=== PATIENT | male | born 1955 | race Caucasian/White ===

== ENCOUNTER → 2021-10-14 07:53 | Outpatient (CLI) | payer MEDICARE, OTHER, SELFPAY ==
[2021-10-14 08:31] LABS: Hematocrit 44.7 % (41-53); Hemoglobin 15.2 g/dL (13.5-17.5); Mean Corpuscular Hemoglobin 30.3 PG (26-34); Mean Corpuscular Volume 88.9 fL (80-100); Platelet Count 250 X10^3/uL (150-400); Red Blood Cell Count 5.03 X10^6/uL (4.5-5.9); Red Cell Distribution Width 13.2 % (11.6-14.8); White Blood Cell Count 4.5 X10^3/uL (4.5-11.0)
[2021-10-14 09:06] LABS: Alanine Aminotransferase 27 IU/L (<50); Albumin 4.2 g/dL (3.5-5.0); Albumin Globulin Ratio 1.4 (1.0-2.8); Alkaline Phosphatase 59 U/L (38-126); Aspartate Aminotransferase 27 IU/L (17-59); BUN Creatinine Ratio 23.3 (6-22); Bilirubin Total 0.6 mg/dL (0.2-1.3); Blood Urea Nitrogen 24 mg/dL (9-20); Calcium 9.4 mg/dL (8.4-10.2); Carbon Dioxide 25 mmol/L (22-32); Chloride 105 mmol/L (98-107); Cholesterol 206 mg/dL (140-199); Estimated Glomerular Filt Rate > 60 mL/min (>60); Globulin 2.9 g/dL (1.7-4.1); Glucose 105 mg/dL (80-110); HDL Cholesterol 47 mg/dL (40-60); HEMOLYSIS < 15 (0-50); LDL Cholesterol Calculated 146 mg/dL (<100); Potassium 4.6 mmol/L (3.4-5.1); Sodium 139 mmol/L (137-145); Total Protein 7.1 g/dL (6.3-8.2); Triglycerides 67 mg/dL (35-150)
[2021-10-14 09:34] LABS: Prostate Specific Antigen 0.766 ng/mL (0.10-4.00)
== END ==
PROVIDERS: PCP Internal Medicine; Referring Provider Internal Medicine; Visit Provider Internal Medicine
DX: E78.2 Mixed hyperlipidemia (principal); N40.1 Benign prostatic hyperplasia with lower urinary tract symptoms; N13.8 Other obstructive and reflux uropathy
CPT/HCPCS: 36415; 80053; 80061; 84153; 84443; 85027

== ENCOUNTER → 2022-04-10 15:43 | Outpatient (CLI) | payer MEDICARE, OTHER, SELFPAY ==
--- NOTE | 2022-04-10 15:45 | DI.CT.S_ITS ---
PROCEDURE: CT SINUS SCREEN WO CON INDICATIONS: recurrent sinusitis TECHNIQUE: Noncontrast 3.0 mm axial images acquired from the frontal sinuses to the mid-sella, with coronal and sagittal reformats. For radiation dose reduction, the following was used: automated exposure control, adjustment of mA and/or kV according to patient size. COMPARISON: None. FINDINGS: Image quality: Excellent. Maxillary Sinuses: Prominent left maxillary sinus disease is seen. Moderate right-sided maxillary sinus disease is seen. The left maxillary sinus demonstrates remodeling with small size. The medial wall of the left maxillary sinus is not well seen. The medial wall of the right maxillary sinus is demineralized. Ethmoid Air Cells: No bony remodeling or destruction. Mild mucosal thickening is seen within the ethmoid air cells. Sphenoid Sinuses: No bony remodeling or destruction. Sinuses are clear. Frontal Sinuses: No bony remodeling or destruction. Mild mucosal thickening is seen within the inferior medial right frontal sinus Ostiomeatal Complexes: Ostiomeatal complexes are patent. No Macy cells. Miscellaneous: Visualized intra-orbital contents are normal. No shannon bullosa or paradoxical turbinate curvature. There is mild to moderate leftward nasal septal deviation. IMPRESSION: Paranasal sinus disease is seen, which is worst involving the left maxillary sinus. The remodeling change of the maxillary sinuses is consistent with chronic sinus disease. [id number] leftward nasal septal deviation noted. Dictated by: Nino Cifuentes M.D. on 04/10/2022 at 16:40 Approved by: Nino Cifuentes M.D. on 04/10/2022 at 16:42
== END ==
PROVIDERS: PCP Internal Medicine; Referring Provider Internal Medicine; Visit Provider Internal Medicine
DX: J32.8 Other chronic sinusitis (principal); J34.2 Deviated nasal septum
CPT/HCPCS: 70486

== ENCOUNTER → 2022-07-20 09:55 | Outpatient (CLI) | payer MEDICARE, OTHER, SELFPAY ==
--- NOTE | 2022-07-20 | DI.CT.S_ITS ---
PROCEDURE: CT SINUS SCREEN WO CON INDICATIONS: Chronic pansinusitis/Headache TECHNIQUE: Noncontrast 3.0 mm axial images acquired from the frontal sinuses to the mid-sella, with coronal and sagittal reformats. For radiation dose reduction, the following was used: automated exposure control, adjustment of mA and/or kV according to patient size. COMPARISON: [facility], CT, CT SINUS SCREEN WO CON, 04/10/2022, 15:53. FINDINGS: Image quality: Excellent. Maxillary Sinuses: No bony remodeling or destruction. Moderate right and severe left maxillary sinus mucosal thickening. Status post presumed resection of the medial wall of the left maxillary sinus. Ethmoid Air Cells: No bony remodeling or destruction. Mild right and moderate left ethmoid sinus mucosal disease. Sphenoid Sinuses: No bony remodeling or destruction. Sinuses are clear. Frontal Sinuses: No bony remodeling or destruction. Sinuses are clear. Ostiomeatal Complexes: Ostiomeatal complexes are opacified bilaterally. No Macy cells. Miscellaneous: Visualized intra-orbital contents are normal. No shannon bullosa or paradoxical turbinate curvature. Mild leftward nasal septal deviation. IMPRESSION: 1. No significant change in sinus disease associated with ostiomeatal unit opacification bilaterally. 2. Leftward nasal septal deviation. 3. Presumed left-sided maxillary sinus surgery. Dictated by: Kenzie Mccullough M.D. on 07/20/2022 at 13:36 Approved by: Kenzie Mccullough M.D. on 07/20/2022 at 13:39
== END ==
PROVIDERS: PCP Internal Medicine; Referring Provider Physician Assistant; Visit Provider Physician Assistant
DX: J32.4 Chronic pansinusitis (principal); J34.2 Deviated nasal septum; R51.9 Headache, unspecified
CPT/HCPCS: 70486

== ENCOUNTER → 2022-07-27 08:18 | Outpatient (CLI) | payer MEDICARE, OTHER, SELFPAY ==
--- NOTE | 2022-07-27 08:20 | DI.US.S_ITS ---
PROCEDURE: US ABDOMEN LIMITED INDICATIONS: HERNIA TECHNIQUE: Real-time focused scanning was performed of the abdomen, with image documentation. COMPARISON: None. FINDINGS: There is a bowel and fat containing right inguinal hernia without evidence for incarceration. No fluid noted in the hernia sac. Size of the hernia defect measures approximately 2.0 cm in diameter. No adenopathy. IMPRESSION: Bowel and fat containing right inguinal hernia without sonographic evidence to suggest incarceration. Dictated by: Dalton Bear M.D. on 07/27/2022 at 11:23 Approved by: Dalton Bear M.D. on 07/27/2022 at 11:25
== END ==
PROVIDERS: PCP Internal Medicine; Referring Provider Internal Medicine; Visit Provider Internal Medicine
DX: K40.90 Unilateral inguinal hernia, without obstruction or gangrene, not specified as recurrent (principal)
CPT/HCPCS: 76705

== ENCOUNTER 2022-07-31 14:02 | Day surgery (SDC) | payer MEDICARE, OTHER, SELFPAY ==
[2022-07-30 11:55] VITALS: BMI 26.6
[2022-07-31] VITALS (8 sets, daily range): BP systolic 128–137; BP diastolic 70–84; PULSE 59–73; RESP 12–19; TEMP 36.5; O2SAT 95–99; BMI 26.6
[2022-07-31] MEDS: LACTATED RINGERS 1,000 ML 100 ML IV ×2 (14:22→16:39)
--- NOTE | 2022-07-31 15:29 | PM.PREOP ---
Pre-operative Note Interval Note History & Physical reviewed/Exam performed by Physician: Yes Changes to H&P: No
--- NOTE | 2022-07-31 15:38 | SUR.OPER ---
Supine on padded OR bed, head on pillow, arms padded and tucked at sides, legs uncrossed, safety belt at thigh, tape over blanket over lower legs .
[2022-07-31] MEDS: CLINDAMYCIN 900 MG/50 ML PIGGYBACK 50 MG IV (15:40)
[2022-07-31] MEDS: BUPIVACAINE 0.25% (PF) VIAL 30 ML INJ (16:01)
--- NOTE | 2022-07-31 16:54 | PM.OP.1 ---
Operative Date/Time/Diagnoses Date of procedure: 07/31/22 Time of procedure: 16:54 Pre-op diagnosis: Right inguinal hernia Post-op diagnosis: same Procedure & Clinicians Procedure: Laparoscopic transabdominal preperitoneal repair right inguinal hernia Same procedure as scheduled: Yes Indications: symptomatic reducible right inguinal Surgeon: Abisai Lindsey Anesthesia Type: General Operative Notes Findings: Appendix is within an indirect right inguinal Specimen(s): none sent Estimated Blood Loss (mL): 10 Procedure in detail: The patient was brought to the operating room and placed supine on the table. Bilateral sequential compression devices were applied. General anesthesia was induced and they were intubated with an endotracheal tube. A turner cath was placed in sterile fashion. They received 900g clindaymycin prior to skin incision. They were prepped and draped in sterile fashion. A time out was performed to ensure the correct patient, procedure and necessary equipment within the operating room. The skin was infiltrated with 0.25% bupivicaine. A 1 cm supra umbilical midline incision was made. The fascia was sharply incised and the abdomen entered traumatically. A 10mm balloon port was placed and pneumoperitoneum was established at 15mm Hg. Inspection of the abdomen demonstrated no evidence of injury upon entry. Two 5 mm ports were then placed under direct visualization in the right and left lower quadrant lateral to the rectus muscle. A right inguinal hernia was identified. The appendix was within it. Appendix was reduced it was normal in its appearance. The peritoneum 4 cm superior to the deep inguinal ring between the medial umbilical ligament and the anterior superior iliac spine was incised. The medial preperitoneal dissection was carried out into the space of Retzius bluntly, the bladder was swept inferiorly, the pubis and Alexis's ligament were identified. Next attention was turned towards the lateral aspect of the peritoneal flap. The preperitoneal fat with the testicular vessels was carefully dissected off the inferior peritoneal flap. The cord was carefully inspected there was a cord lipoma which was skeltonized off the cord preserving the testicular vessels and the vas deferns. There was no direct hernia defect. A large Bard 3D Max mesh was then placed into the abdomen and positioned such that the myopectineal orifice was completely covered with good overlap on all sides. The peritoneal flap was then repositioned back to its original position and a running V lock suture was used to close the peritoneum such that no bowel could herniate into the preperitoneal space. The area was examined for hemostasis. The 5mm trocars were removed under direct visualization and pneumoperitoneum was deflated through the umbilical trocar, The fascia at the umbilicus was closed with 0-Vicryl in figure of 8 fashion, skin closed with 4-0 Monocyl followed by Dermabond. The sponge and instrument count at the end of the case was correct. Both testicles were entirely within the scrotum at the end of the case. The patient emerged from anesthsia was extubated and transferred to recovery in stable condition. Complications: none Post-operative Condition: stable Disposition: same day surgery
[2022-07-31] MEDS: OXYCODONE/ACETAMINOPHEN 5/325 TABLET 1 TAB PO (17:13)
--- NOTE | 2022-07-31 17:53 | SUR.PHASEII ---
DC instructions gone over with and patient. pain tolerable, ready to go home for dinner. taken to car in .
== END 2022-07-31 17:54 | disposition home or self-care (01) ==
PROVIDERS: PCP Internal Medicine; Referring Provider Surgery; Visit Provider Surgery
PROC: 0YQ54ZZ Repair Right Inguinal Region, Percutaneous Endoscopic Approach (ICD-10-PCS; CPT 49650; principal; 2022-07-31 15:30)
DX: K40.90 Unilateral inguinal hernia, without obstruction or gangrene, not specified as recurrent (principal); D17.6 Benign lipomatous neoplasm of spermatic cord
CPT/HCPCS: 49650; J1100; J1885; J2250; J2405; J2704; J3010

== ENCOUNTER → 2022-10-14 10:54 | Outpatient (CLI) | payer MEDICARE, OTHER, SELFPAY ==
[2022-10-14 13:35] LABS: Alanine Aminotransferase 32 IU/L (<50); Albumin 4.5 g/dL (3.5-5.0); Albumin Globulin Ratio 1.6 (1.0-2.8); Alkaline Phosphatase 62 U/L (38-126); Aspartate Aminotransferase 33 IU/L (17-59); BUN Creatinine Ratio 24.7 (6-22); Bilirubin Total 0.8 mg/dL (0.2-1.3); Blood Urea Nitrogen 23 mg/dL (9-20); Calcium 9.6 mg/dL (8.4-10.2); Carbon Dioxide 27 mmol/L (22-32); Chloride 103 mmol/L (98-107); Cholesterol 228 mg/dL (140-199); Estimated Glomerular Filt Rate > 60 mL/min (>60); Globulin 2.8 g/dL (1.7-4.1); Glucose 88 mg/dL (80-110); HDL Cholesterol 52 mg/dL (40-60); HEMOLYSIS < 15 (0-50); LDL Cholesterol Calculated 157 mg/dL (<100); Potassium 4.7 mmol/L (3.4-5.1); Sodium 139 mmol/L (137-145); Total Protein 7.3 g/dL (6.3-8.2); Triglycerides 93 mg/dL (35-150)
[2022-10-14 14:09] LABS: Prostate Specific Antigen 0.971 ng/mL (0.10-4.00)
== END ==
PROVIDERS: PCP Internal Medicine; Referring Provider Internal Medicine; Visit Provider Internal Medicine
DX: E78.2 Mixed hyperlipidemia (principal); N40.1 Benign prostatic hyperplasia with lower urinary tract symptoms; N13.8 Other obstructive and reflux uropathy
CPT/HCPCS: 36415; 80053; 80061; 84153

== ENCOUNTER → 2023-10-20 10:45 | Outpatient (CLI) | payer MEDICARE, OTHER, SELFPAY ==
[2023-10-20 11:50] LABS: Add Manual Diff / Slide Review NO; Basophils Absolute Auto 0 /uL (0-100); Basophils Percent Auto 0.7 % (0-2); Eosinophils Absolute Auto 300 /uL (0-450); Eosinophils Percent Auto 5.2 % (2-4); Hematocrit 46.4 % (41-53); Hemoglobin 15.9 g/dL (13.5-17.5); Lymphocytes Absolute Auto 1200 /uL (1100-4500); Lymphocytes Percent Auto 20.3 % (25-40); Mean Corpuscular HGB Conc 34.1 % (30-36); Mean Corpuscular Hemoglobin 30.6 PG (26-34); Mean Corpuscular Volume 89.7 fL (80-100); Monocytes Absolute Auto 700 /uL (0-900); Monocytes Percent Auto 11.7 % (3-14); Neutrophils Absolute Auto 3600 /uL (1500-7000); Neutrophils Percent Auto 62.1 % (50-75); Platelet Count 240 X10^3/uL (150-400); Red Blood Cell Count 5.18 X10^6/uL (4.5-5.9); Red Cell Distribution Width 13.3 % (11.6-14.8); White Blood Cell Count 5.8 X10^3/uL (4.5-11.0)
[2023-10-20 17:53] LABS: Aspartate Aminotransferase 31 IU/L (17-59); BUN Creatinine Ratio 23.3 (6-22); Blood Urea Nitrogen 24 mg/dL (9-20); Calcium 9.8 mg/dL (8.4-10.2); Carbon Dioxide 25 mmol/L (22-32); Chloride 106 mmol/L (98-107); Cholesterol 231 mg/dL (140-199); Estimated Glomerular Filt Rate > 60 mL/min (>60); Glucose 95 mg/dL (80-110); HDL Cholesterol 50 mg/dL (40-60); HEMOLYSIS < 15 (0-50); LDL Cholesterol Calculated 161 mg/dL (<100); Potassium 4.7 mmol/L (3.4-5.1); Sodium 139 mmol/L (137-145); Triglycerides 101 mg/dL (35-150)
[2023-10-20 18:37] LABS: Prostate Specific Antigen 0.878 ng/mL (0.10-4.00)
== END ==
PROVIDERS: PCP Internal Medicine; Referring Provider Internal Medicine; Visit Provider Internal Medicine
DX: N40.1 Benign prostatic hyperplasia with lower urinary tract symptoms (principal); N13.8 Other obstructive and reflux uropathy; E78.2 Mixed hyperlipidemia; J30.9 Allergic rhinitis, unspecified; J45.20 Mild intermittent asthma, uncomplicated
CPT/HCPCS: 36415; 80048; 80061; 84153; 84450; 85025

== ENCOUNTER → 2023-12-09 14:08 | Outpatient (CLI) | payer MEDICARE, OTHER, SELFPAY ==
[2023-12-09 15:00] LABS: Appearance Urine UA CLEAR; Bilirubin Urine UA NEGATIVE (NEGATIVE); Color Urine UA YELLOW; Glucose Urine UA NEGATIVE (Negative); Ketones Urine UA NEGATIVE (NEGATIVE); Leukocyte Esterase Urine UA NEGATIVE (NEGATIVE); Nitrite Urine UA NEGATIVE (Negative); Occult Blood Urine UA 1+ (Negative); Protein Urine UA NEGATIVE (Negative); Specific Gravity Urine UA >=1.030 (1.000-1.035); Urobilinogen Urine UA 0.2 E.U./dL (0.2); pH Urine UA 5.5 (4.5-8.0)
[2023-12-09 15:15] LABS: Bacteria Urine None Seen; RBC Urine 5-10/HPF (0-5/HPF); Squamous Epithelial Cell Urine None Seen (0-5/HPF); Uric Acid Crystals Urine Moderate; Urine Volume 10mL (spun); WBC Urine None Seen (0-5/HPF)
[2023-12-09 15:16] LABS: Culture Indicated Urine Cult Not Indicated
== END ==
PROVIDERS: PCP Internal Medicine; Visit Provider Physician Assistant
DX: N20.0 Calculus of kidney (principal); R31.9 Hematuria, unspecified
CPT/HCPCS: 81001

== ENCOUNTER → 2023-12-09 15:39 | Outpatient (CLI) | payer MEDICARE, OTHER, SELFPAY ==
[2023-12-09 16:31] LABS: Uric Acid 6.8 mg/dL (3.5-8.5)
== END ==
PROVIDERS: PCP Internal Medicine; Referring Provider Physician Assistant; Visit Provider Physician Assistant
DX: N20.0 Calculus of kidney (principal); R31.9 Hematuria, unspecified; R82.998 Other abnormal findings in urine
CPT/HCPCS: 36415; 81001; 82365; 84550

== ENCOUNTER → 2023-12-29 09:39 | Outpatient (CLI) | payer MEDICARE, OTHER, SELFPAY ==
[2023-12-29 10:30] LABS: Estimated Glomerular Filt Rate > 60 mL/min (>60)
== END ==
PROVIDERS: PCP Internal Medicine; Referring Provider Urology; Visit Provider Urology
DX: R31.0 Gross hematuria (principal); Z87.442 Personal history of urinary calculi; N40.1 Benign prostatic hyperplasia with lower urinary tract symptoms
CPT/HCPCS: 36415; 82565

== ENCOUNTER → 2024-01-06 12:36 | Outpatient (CLI) | payer MEDICARE, OTHER, SELFPAY ==
--- NOTE | 2024-01-06 12:38 | DI.CT.S_ITS ---
PROCEDURE: CT IVP A/P W/WO INDICATIONS: 68 y/o M w/ gross hematuria, please eval upper urinary tract TECHNIQUE: Optional 5 mm thick noncontrast images acquired from the diaphragm to the symphysis pubis. After the administration of intravenous contrast, 5 mm thick images acquired from the diaphragm to the symphysis pubis after a 10-minute delay. 2 mm thick coronal and sagittal reformats were then performed of the kidneys and ureters. For radiation dose reduction, the following was used: automated exposure control, adjustment of mA and/or kV according to patient size. COMPARISON: None. FINDINGS: Image quality: Diagnostic Lower chest: Basal atelectasis. Normal heart size. Liver: Unremarkable Gallbladder and biliary system: Unremarkable, nondilated Pancreas: No ductal dilation Spleen: Nonenlarged Adrenals: No discrete nodule Kidneys: Multiple renal cysts. Subcentimeter lesions are too small to characterize, usually also cysts. No definite complicated lesion or solid lesion identified. 8 x 6 x 6 mm left upper pole nonobstructing calculus. Other bilateral small calculi are seen under 5 mm. No obstructing calcified stone or hydronephrosis. No ureter filling defects. Vessels and lymph nodes: No abdominal aortic aneurysm. No pathologic lymph nodes by size criteria. The main portal vein is patent. Bowel and peritoneum: No evidence of small bowel obstruction. No pathologic ascites. No drainable abscess. Colonic diverticulosis. Body wall: Small fat containing inguinal hernias. Small fat containing umbilical hernia. Pelvis: Bladder appears unremarkable. Prostate appears unremarkable. Limited evaluation on CT. Bones: There are degenerative changes, no acute or suspicious osseous findings. IMPRESSION: Bilateral nonobstructing renal calculi, the largest measuring up to 8 mm in the left upper pole. No solid renal mass. The lower tracts could be better evaluated with cystoscopy in the setting of hematuria. Other incidental findings above. Dictated by: Ronak Cano M.D. on 01/06/2024 at 15:00 Approved by: Ronak Cano M.D. on 01/06/2024 at 15:05
== END ==
LOC: CT 12:37
PROVIDERS: PCP Internal Medicine; Referring Provider Urology; Visit Provider Urology
DX: N28.1 Cyst of kidney, acquired (principal); R31.0 Gross hematuria; N20.0 Calculus of kidney; K57.90 Diverticulosis of intestine, part unspecified, without perforation or abscess without bleeding; K40.90 Unilateral inguinal hernia, without obstruction or gangrene, not specified as recurrent; K42.9 Umbilical hernia without obstruction or gangrene
CPT/HCPCS: 74178; Q9967

== ENCOUNTER → 2024-01-19 14:52 | Outpatient (CLI) | payer MEDICARE, OTHER, SELFPAY ==
[2024-01-19 16:04] LABS: Appearance Urine UA CLEAR; Bilirubin Urine UA NEGATIVE (NEGATIVE); Color Urine UA YELLOW; Glucose Urine UA NEGATIVE (Negative); Ketones Urine UA NEGATIVE (NEGATIVE); Leukocyte Esterase Urine UA NEGATIVE (NEGATIVE); Nitrite Urine UA NEGATIVE (Negative); Occult Blood Urine UA 2+ (Negative); Protein Urine UA NEGATIVE (Negative); Specific Gravity Urine UA <=1.005 (1.000-1.035); Urobilinogen Urine UA 0.2 E.U./dL (0.2)
[2024-01-19 16:16] LABS: Amorphous Sediment Urine 1+; Bacteria Urine None Seen; Culture Indicated Urine Cult Not Indicated; RBC Urine 1-5/HPF (0-5/HPF); Squamous Epithelial Cell Urine None Seen (0-5/HPF); Urine Volume 10mL (spun); WBC Urine None Seen (0-5/HPF)
== END ==
PROVIDERS: PCP Internal Medicine; Referring Provider Urology; Visit Provider Urology
DX: N40.1 Benign prostatic hyperplasia with lower urinary tract symptoms (principal); R31.0 Gross hematuria; Z87.442 Personal history of urinary calculi; E79.0 Hyperuricemia without signs of inflammatory arthritis and tophaceous disease; N13.8 Other obstructive and reflux uropathy; N20.0 Calculus of kidney
CPT/HCPCS: 81001

== ENCOUNTER → 2024-02-03 10:34 | Outpatient (CLI) | payer MEDICARE, OTHER, SELFPAY | PROVIDERS: PCP Internal Medicine; Visit Provider Urology | DX: N40.1 Benign prostatic hyperplasia with lower urinary tract symptoms (principal) | CPT/HCPCS: 87086 ==

== ENCOUNTER 2024-02-18 06:25 | Day surgery (SDC) | payer MEDICARE, OTHER, SELFPAY ==
[2024-02-11 13:40] VITALS: BMI 26.6
[2024-02-18] VITALS (9 sets, daily range): BP systolic 82–129; BP diastolic 56–79; PULSE 75–96; RESP 10–20; TEMP 36.2–36.7; O2SAT 92–99; BMI 26.6
--- NOTE | 2024-02-18 | PATH_ITS ---
[facility] Accession Number: [id number] No. of containers..01 Tissue . 01 Material submitted: . prostate - PROSTATE CHIPS . 01 Diagnosis: PROSTATE CHIPS (WEIGHT LESS THAN 1 GRAM): Portions of benign fibroepithelial / fibromuscular tissue; negative for significant atypia. The specimen consists predominantly of stromal fragments, and could be consistent with stromal / fibromuscular hyperplasia, in the appropriate clinical setting. Scant / limited glandular elements present for evaluation. Negative for malignancy. GRAHAM 02/22/2024 1351 Local . 01 Electronically signed: . Shae Cruz MD, Pathologist NPI- [id number] . 01 Gross description: . Received in formalin with two identifiers and prostate chips, are multiple thomas soft tissue fragments weighing less than 1 gram and aggregating to 2.6 x 1.5 x 0.2 cm. Filtered and submitted entirely in cassette A1. ([id number]) /GRAHAM 02/19/2024 2118 Local . 01 Pathologist provided ICD-10: N32.0, R31.0 . 01 CPT . 990044 Performed at: [address] [facility] [address], [place], [place] [id number] MD Bryan Timmons MD Phone: [phone]
[2024-02-18] MEDS: LACTATED RINGERS 1,000 ML 42 ML IV (07:04)
[2024-02-18] MEDS: ACETAMINOPHEN 325 MG TABLET 975 MG PO (07:08)
--- NOTE | 2024-02-18 07:39 | PM.PREOP ---
Pre-operative Note COVID-19 COVID-19 status: Not tested Interval Note History & Physical reviewed/Exam performed by Physician: Yes Changes to H&P: No
--- NOTE | 2024-02-18 08:08 | SUR.OPER ---
Lithotomy on padded OR bed, head on pillow, arms secured on padded arm boards at <90 degrees abduction. Legs secured in padded yellow fins stirrups.
--- NOTE | 2024-02-18 08:39 | P.OP_ITS ---
Procedure & Clinicians Procedure: Cystoscopy Resection of bladder neck contracture Same procedure as scheduled: Yes Indications: 68 y/o M noted to have gross hematuria w/ intermittent passage of red cystals and small stones for years. Discussed that his CT IVP was notable for non- obstructive left nephrolithiasis, otherwise unremarkable. His cystoscopy was notable for a 12Fr bladder neck contracture and regrowth of his prostatic tissue laterally following a TURP. He ultimately opted for management via a cystoscopy, resection of his bladder neck contracture and a possible TURBT should a concerning bladder mass be identified. Surgeon: Dalton Cooper Click Yes if Unassisted: Yes Anesthesia Type: General Operative Notes Findings: 12Fr bladder neck contracture, 18Fr bulbar urethral stricture, no concerning bladder masses or lesions Closure Type: not applicable Specimen(s): other (prostate chips) Applied: catheter Estimated Blood Loss (mL): 20 Blood products transfused: none Procedure in detail: Patient was identified in the preoperative holding area and consent confirmed. He was then brought to the operating room where general anesthesia was induced. He was then placed in the low lithotomy position. He was then prepped and draped in the usual sterile fashion. A surgical timeout was conducted and all were in agreement. Access to the bladder was obtained via a 21Fr cystoscope. 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 He also was noted to have a 12Fr thick bladder neck contracture and lateral regrowth of prostatic tissue following a TURP. With moderate pressure on the cystoscope, it was advanced into the bladder and through the aforementioned bladder neck contracture. Complete cystoscopy was then performed using a 30 and 70 degree lens. Bilateral ureteral orifice were easily visualized and noted to be orthotopic in nature. He had grade 3 trabeculations throughout his bladder, no concerning masses or lesions were appreciated. The cystoscope was then removed and the 26Fr resectoscope with visual obturator was then advanced through his urethra and into his bladder. The working element with Gyrus loop was then assembled and passed through the resectoscope and into the bladder. The aforementioned bladder neck contracture was then resected to allow his bladder neck to be wide open when viewed from the level of the verumontanum. All prostate specimens were then manually evacuated from the bladder using the resectoscope. Hemostasis was evaluated and noted to be excellent at case end. A 22Fr 3-way hematuria catheter was then inserted into his bladder, 30cc of sterile water was utilized for balloon insufflation. Continuous bladder irrigation was then initiated and it was noted to be clear. Anesthesia was reversed, he was extubated in the OR and transferred to the PACU in stable condition for recovery. Complications: none Post-operative Condition: stable Disposition: PACU Plan for aftercare: Discharge home from PACU with turner catheter in place. Will return to Urology clinic on 22 Feb 2024 to have his catheter removed and for a voiding trial.
[2024-02-18] MEDS: OXYCODONE IR 5 MG TABLET PO ×2 (08:56→09:25)
[2024-02-18] MEDS: PHENAZOPYRIDINE 100 MG TABLET 200 MG PO (09:10)
== END 2024-02-18 10:38 | disposition home or self-care (01) ==
PROVIDERS: PCP Internal Medicine; Referring Provider Urology; Visit Provider Urology
PROC: 0TBB8ZZ Excision of Bladder, Via Natural or Artificial Opening Endoscopic (ICD-10-PCS; CPT 52640; principal; 2024-02-18 07:45)
DX: N32.0 Bladder-neck obstruction (principal); R31.0 Gross hematuria
CPT/HCPCS: 52640; J1100; J2405; J2704; J3010

== ENCOUNTER 2024-02-20 21:33 | Emergency (ER) | payer MEDICARE, OTHER, SELFPAY ==
[2024-02-20 21:53] VITALS: BP 122/80; PULSE 81; RESP 18; TEMP 36.4; O2SAT 96; BMI 25.8
--- NOTE | 2024-02-20 23:27 | ED_ITS ---
HPI - Recheck/Abnormal Lab/Rx General Chief Complaint: Recheck/Abnormal Lab/Rx Stated Complaint: UTi procedure Fri and having pain & blood in urine Time Seen by Provider: 02/20/24 23:27 Source: patient Mode of arrival: Ambulatory Related Data Home Medications Medication Instructions Recorded Confirmed magnesium 250 mg tablet 250 mg PO DAILY 10/13/21 02/18/24 naproxen sodium 220 mg capsule 440 mg PO DAILY PRN pain 10/13/21 02/18/24 (Aleve) omeprazole magnesium 20 mg 20 mg PO DAILY PRN reflux 10/13/21 02/18/24 tablet,delayed release (Prilosec OTC) cetirizine 10 mg tablet (Aller-Vandana) 10 mg PO DAILY rash 06/16/23 02/18/24 Previous Rx's Medication Instructions Recorded acetaminophen 325 mg capsule 650 mg (2 x 325 mg) PO QID PRN 07/31/22 (Tylenol) pain #60 caps albuterol sulfate 90 mcg/actuation 2 puff inhalation Q6H PRN 10/14/22 aerosol inhaler shortness of breath or wheezing #8.5 grams simvastatin 40 mg tablet 40 mg PO BEDTIME #90 tabs 12/13/23 Allergies Allergy/AdvReac Type Severity Reaction Status Date / Time cephalexin Allergy Intermediate Hives, Verified 02/18/24 06:39 itching, lip swelling cat dander Allergy Mild Sneezing Verified 02/18/24 06:39 atorvastatin AdvReac Intermediate abnormal Verified 02/18/24 06:39 liver testing, reflux Patient History Medical History (Updated 02/04/24 @ 11:00 by Dalton Cooper DO) Trigger finger, right ring finger Eczematous dermatitis Plantar fasciitis, left History of COVID-19 (09/2021) Anxiety Neck pain Palpitations Lactose intolerance HLD (hyperlipidemia) Polycythemia Recurrent sinusitis Right inguinal hernia History of colonic polyps Obstructive sleep apnea History of kidney stones BPH w urinary obs/LUTS Asthma, mild intermittent Allergic rhinitis GERD without esophagitis Mixed hyperlipidemia Surgical History (Updated 02/11/24 @ 13:54 by Ayleen Pardo RN) Hx of right inguinal hernia repair (07/31/22) History of back surgery (02/1991) History of transurethral resection of prostate (11/2020) Hx of umbilical hernia repair Social History marital status: details: , 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, 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 household members: spouse lives independently: Yes occupational status: previously employed Smoking Status: Former smoker alcohol intake: current Smoking Status: Former smoker alcohol intake frequency: a few times a month Exam Initial Vital Signs Initial Vital Signs: Vital Signs Temperature 97.6 F 02/20/24 21:53 Pulse Rate 81 02/20/24 21:53 Respiratory Rate 18 02/20/24 21:53 Blood Pressure 122/80 02/20/24 21:53 Pulse Oximetry 96 02/20/24 21:53 Oxygen Delivery Method Room Air 02/20/24 21:53 Course Vital Signs Vital signs: Vital Signs - 8 hr 02/20/24 21:53 Temperature 97.6 F Pulse Rate 81 Respiratory Rate 18 Blood Pressure 122/80 Pulse Oximetry 96 Oxygen Delivery Method Room Air Discharge Plan Departure Prescriptions: No Action simvastatin 40 mg tablet 40 mg PO BEDTIME Qty: 90 3RF magnesium 250 mg tablet 250 mg PO DAILY naproxen sodium [Aleve] 220 mg capsule 440 mg PO DAILY PRN (Reason: pain) omeprazole magnesium [Prilosec OTC] 20 mg tablet,delayed release (DR/EC) 20 mg PO DAILY PRN (Reason: reflux) albuterol sulfate 90 mcg/actuation HFA aerosol inhaler 2 puff inhalation Q6H PRN (Reason: shortness of breath or wheezing) Qty: 8.5 5RF cetirizine [Aller-Vandana] 10 mg tablet 10 mg PO DAILY acetaminophen [Tylenol] 325 mg capsule 650 mg PO QID PRN (Reason: pain) Qty: 60 0RF Referrals: Hola Feliciano MD [Primary Care Provider] -
[2024-02-21 00:06] VITALS: BP 139/79; PULSE 63; RESP 16; O2SAT 96
[2024-02-21 00:18] LABS: Appearance Urine UA CLEAR; Bilirubin Urine UA NEGATIVE (NEGATIVE); Color Urine UA YELLOW; Glucose Urine UA NEGATIVE (Negative); Ketones Urine UA 1+ (NEGATIVE); Leukocyte Esterase Urine UA TRACE (NEGATIVE); Nitrite Urine UA NEGATIVE (Negative); Occult Blood Urine UA 3+ (Negative); Protein Urine UA NEGATIVE (Negative); Specific Gravity Urine UA <=1.005 (1.000-1.035); Urobilinogen Urine UA 0.2 E.U./dL (0.2)
[2024-02-21 00:20] LABS: Bacteria Urine None Seen; Culture Indicated Urine Cult Not Indicated; RBC Urine 1-5/HPF (0-5/HPF); Squamous Epithelial Cell Urine None Seen (0-5/HPF); Transitional Epi Cells Urine 0-1/HPF (0-5/HPF); Urine Volume 10mL (spun); WBC Urine 0-1/HPF (0-5/HPF)
--- NOTE | 2024-02-21 00:45 | ED.RECABL ---
HPI - Recheck/Abnormal Lab/Rx General Chief Complaint: Recheck/Abnormal Lab/Rx Stated Complaint: UTi procedure Wed and having pain & blood in urine Time Seen by Provider: 02/20/24 23:27 Source: patient Mode of arrival: Ambulatory History of Present Illness HPI narrative: 69-year-old male with history of prior TURP 2020 [facility], 2 months ago started having gross hematuria symptoms, had initial attempt at cystoscopy by local urologist Dr. Cooper who was initially unable to introduce the catheter due to urethral stricture, last Wednesday he had a urethroplasty, and completed cystoscopy, patient not sure if there was also biopsy of any bladder, procedures seemed to go well, was discharged with transurethral urinary catheter that is still in place. He had been taking [id number] azo that he stopped yesterday, had not been having any bowel movement since now 3 days ago, took a laxative yesterday, and a course of MiraLax after talking to on-call nursing, still not having any bowel movement today. This evening had intense penile pain, did not believe that he pulled on the catheter, had some bleeding around the catheter at seemed to stop, still having lower abdominal discomfort without recent bowel movement. No fevers or chills. No blood in stool. Related Data Home Medications Medication Instructions Recorded Confirmed magnesium 250 mg tablet 250 mg PO DAILY 10/13/21 02/18/24 naproxen sodium 220 mg capsule 440 mg PO DAILY PRN pain 10/13/21 02/18/24 (Aleve) omeprazole magnesium 20 mg 20 mg PO DAILY PRN reflux 10/13/21 02/18/24 tablet,delayed release (Prilosec OTC) cetirizine 10 mg tablet (Aller-Vandana) 10 mg PO DAILY rash 06/16/23 02/18/24 Previous Rx's Medication Instructions Recorded acetaminophen 325 mg capsule 650 mg (2 x 325 mg) PO QID PRN 07/31/22 (Tylenol) pain #60 caps albuterol sulfate 90 mcg/actuation 2 puff inhalation Q6H PRN 10/14/22 aerosol inhaler shortness of breath or wheezing #8.5 grams simvastatin 40 mg tablet 40 mg PO BEDTIME #90 tabs 12/13/23 ciprofloxacin HCl 500 mg tablet 500 mg PO BID #20 tabs 01/06/25 (Cipro) lactulose 20 gram/30 mL oral 20 g (30 mL) PO BID #600 mL 02/21/24 solution Allergies Allergy/AdvReac Type Severity Reaction Status Date / Time cephalexin Allergy Intermediate Hives, Verified 02/18/24 06:39 itching, lip swelling cat dander Allergy Mild Sneezing Verified 02/18/24 06:39 atorvastatin AdvReac Intermediate abnormal Verified 02/18/24 06:39 liver testing, reflux Patient History Medical History (Updated 02/21/24 @ 01:39 by Chace Stevenson MD) Trigger finger, right ring finger Eczematous dermatitis Plantar fasciitis, left History of COVID-19 (09/2021) Anxiety Neck pain Palpitations Lactose intolerance HLD (hyperlipidemia) Polycythemia Recurrent sinusitis Right inguinal hernia History of colonic polyps Obstructive sleep apnea History of kidney stones BPH w urinary obs/LUTS Asthma, mild intermittent Allergic rhinitis GERD without esophagitis Mixed hyperlipidemia Surgical History (Updated 02/11/24 @ 13:54 by Ayleen Pardo RN) Hx of right inguinal hernia repair (07/31/22) History of back surgery (02/1991) History of transurethral resection of prostate (11/2020) Hx of umbilical hernia repair Social History marital status: details: , 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 HEAD: Atraumatic. Normocephalic. EYES: Pupils equal round and reactive. Extraocular motions intact. No scleral icterus. No injection or drainage. ENT: Nose without bleeding, purulent drainage. Throat without erythema, tonsillar hypertrophy or exudate. Airway patent. NECK: Trachea midline. Non tender CARDIOVASCULAR: Regular rate and rhythm without murmurs, gallops, or rubs. RESPIRATORY: Clear to auscultation. Breath sounds equal bilaterally. No wheezes, rales, or rhonchi. GASTROINTESTINAL: Abdomen soft, non-tender, nondistended. : Circumcised male genitalia, with urinary catheter in place, dried blood around penis, no blood in tubing, slight pink tinge in collection bag noted. EXTREMITIES: No edema or joint tenderness. BACK: Nontender without deformity or crepitance. No flank tenderness. NEURO: AOx3. Motor functions grossly nonfocal SKIN: No rash or erythema of visible areas Initial Vital Signs Initial Vital Signs: Vital Signs Temperature 97.6 F 02/20/24 21:53 Pulse Rate 81 02/20/24 21:53 Respiratory Rate 18 02/20/24 21:53 Blood Pressure 122/80 02/20/24 21:53 Pulse Oximetry 96 02/20/24 21:53 Oxygen Delivery Method Room Air 02/20/24 21:53 Course Orders Ordered: ED Orders 02/20/24 23:53 Urinalysis and Microscopic Stat 02/21/24 00:56 CT abdomen pelvis wo con Stat 02/21/24 01:15 CBC Auto Diff [Complete Blood Count AUTO DIFF] Stat CMP [Comprehensive Metabolic Panel] Stat 02/21/24 01:38 Urine Culture Stat Discontinued Medications Ciprofloxacin (Ciprofloxacin 250 Mg Tablet) 500 mg PO NOW ONE Stop: 02/21/24 01:28 Last Admin: 02/21/24 01:43 Dose: 500 mg Documented By: REYNALDO Vital Signs Vital signs: Vital Signs - 8 hr 02/20/24 21:53 02/21/24 00:06 02/21/24 01:14 Temperature 97.6 F Pulse Rate 81 63 68 Respiratory Rate 18 16 18 Blood Pressure 122/80 139/79 Pulse Oximetry 96 96 97 Oxygen Delivery Method Room Air Room Air Room Air 02/21/24 01:14 02/21/24 01:30 02/21/24 01:30 Temperature Pulse Rate 66 Respiratory Rate 16 Blood Pressure 126/81 134/84 Pulse Oximetry 95 Oxygen Delivery Method Room Air MDM - Recheck/Abnormal Lab/Rx Lab Data Attestation: I reviewed the patient's lab results. Lab results narrative: Urinalysis shows some blood, leukocyte esterase trace, no bacteria seen. Does not meet criteria for urine culture 02/21/24 01:15 02/21/24 01:15 Labs: Lab Results 02/20/24 02/21/24 Range/Units 23:53 01:15 WBC 8.8 (4.5-11.0) X10^3/uL RBC 5.37 (4.5-5.9) X10^6/uL Hgb 16.2 (13.5-17.5) g/dL Hct 47.9 (41-53) % MCV 89.1 (80-100) fL MCH 30.1 (26-34) PG MCHC 33.8 (30-36) % RDW 13.1 (11.6-14.8) % Plt Count 251 (150-400) X10^3/uL Neut % (Auto) 63.1 (50-75) % Lymph % (Auto) 21.8 L (25-40) % [place] % (Auto) 10.6 (3-14) % Eos % (Auto) 3.8 (2-4) % Baso % (Auto) 0.7 (0-2) % Neut # (Auto) 5500 (2436-7699) /uL Lymph # (Auto) 1900 (8862-7137) /uL [place] # (Auto) 900 (0-900) /uL Eos # (Auto) 300 (0-450) /uL Baso # (Auto) 100 (0-100) /uL Sodium 136 L (137-145) mmol/L Potassium 3.9 (3.4-5.1) mmol/L Chloride 104 (98-107) mmol/L Carbon Dioxide 24 (22-32) mmol/L BUN 17 (9-20) mg/dL Creatinine 0.96 (0.66-1.25) mg/dL Estimated GFR > 60 (>60) mL/min BUN/Creatinine Ratio 17.7 (6-22) Glucose 95 (80-110) mg/dL Calcium 9.6 (8.4-10.2) mg/dL Total Bilirubin 0.9 (0.2-1.3) mg/dL AST 39 (17-59) IU/L ALT 31 (<50) IU/L Alkaline Phosphatase 65 (38-126) U/L Total Protein 7.8 (6.3-8.2) g/dL Albumin 4.5 (3.5-5.0) g/dL Globulin 3.3 (1.7-4.1) g/dL Albumin/Globulin Ratio 1.4 (1.0-2.8) Urine Color Yellow Urine Appearance Clear Urine pH 7.0 (4.5-8.0) Ur Specific [place] <=1.005 (1.000-1.035) Urine Protein Negative (Negative) Urine Glucose (UA) Negative (Negative) g/dL Urine Ketones 1+ H (NEGATIVE) Urine Occult Blood 3+ H (Negative) Urine Nitrate Negative (Negative) Urine Bilirubin Negative (NEGATIVE) Urine Urobilinogen 0.2 (0.2) E.U./dL Ur Leukocyte Esterase Trace H (NEGATIVE) Urine RBC 1-5/hpf (0-5/HPF) Urine WBC 0-1/hpf (0-5/HPF) Ur Squamous Epith Cells None seen (0-5/HPF) Ur Transition Epith Cell 0-1/hpf (0-5/HPF) Urine Bacteria None seen (None) Ur Culture Indicated? Cult not indicated Vol Urine Centrifuged 10ml (spun) Imaging Data CT scan - abdomen/pelvis: Radiologist's Impression: Close Abdomen/Pelvis CT (Signed) Herb Yusuf - 02/21/24 Launch?[place] [address] CT Scan Report Signed Patient: Brady Sena MR#: [id number] : 1955 Acct:[id number] Age/Sex: 69 / M Date of Service: 02/21/24 Loc: ED Accession Number: [id number] Procedure: CT abdomen pelvis wo con Ordering Provider: Chace Stevenson MD PROCEDURE: CT ABDOMEN PELVIS WO CON INDICATIONS: lower abd pain, recent cystoscopy TECHNIQUE: Axial sections were acquired from the lung bases to the pubic symphysis. Coronal and sagittal reformats were performed. For radiation dose reduction, the following was used: automated exposure control, adjustment of mA and/or kV according to patient size. COMPARISON: None. FINDINGS: Image quality: Diagnostic. Lower Chest: No significant findings. URINARY: Right Kidney: Punctate nonobstructing stones are seen scattered in right renal parenchyma measures 1-2 mm in size. No hydronephrosis. Right Ureter: No hydroureter. Left Kidney: Nonobstructing left renal calculi are seen measures up to 7 mm in size in midpole left kidney. No hydronephrosis. Mild left perinephric fat stranding is seen. Left Ureter: No hydroureter. Bladder: Turner catheter within decompressed urinary bladder lumen. Questionable bladder wall thickening. No calcified bladder stones. ABDOMEN: Liver: No contour-deforming solid mass. Gallbladder: No radiopaque gallstones or wall thickening. Biliary ducts: No biliary dilation. Pancreas: No ductal dilation. Spleen: Size is within normal limits. Adrenal Glands: No adrenal nodules. Stomach and Bowel: There is no bowel obstruction or abnormal bowel wall thickening. Sigmoid diverticulosis without CT evidence of acute diverticulitis. Appendix is not visualized. No focal inflammatory changes are seen in right lower quadrant abdomen. No abscess collection. Peritoneum: No abnormal intraperitoneal fluid. No free air. Ventral Wall: No hernia. Abdominal Nodes: No enlarged retroperitoneal or mesenteric lymph nodes. Vessels: Aorta and inferior vena cava are normal in size. PELVIS: Pelvic Organs: Mildly enlarged prostate gland with mass effect on floor of urinary bladder is seen. Pelvic Nodes: Unremarkable. Miscellaneous: Small bilateral inguinal hernia seen containing only. Bones: No aggressive appearing bony lesions. No acute vertebral body compression fracture or spondylolisthesis. Degenerative disc disease throughout lower thoracic and lumbar spine is seen. IMPRESSION: 1. No obstructing stones or hydronephrosis. Bilateral nonobstructing renal calculi. Mild left perinephric fat stranding, low-grade pyelonephritis cannot be excluded. 2. Turner catheter in decompressed urinary bladder. Questionable bladder wall thickening. No discrete bladder wall mass. No calcified bladder stones. Mildly enlarged prostate gland with mild mass effect on floor of urinary bladder. 3. No bowel obstruction or abnormal bowel wall thickening. No secondary CT signs of acute appendicitis. Sigmoid diverticulosis without CT evidence of acute diverticulitis. No free fluid free air. Dictated by: Herb Yusuf M.D. on 02/21/2024 at 1:13 Approved by: Herb Yusuf M.D. on 02/21/2024 at 1:17 MDM Narrative Medical decision making narrative: 69-year-old male with history of gross hematuria, had recent urethroplasty for stricture, to then complete cystoscopy, still having postoperative turner urinary catheter in place, today had intense penile pain, did not believe the catheter was dislodged, some bleeding around the penis. Also lower abdominal discomfort, no bowel movement for the last 3 days despite use of [id number]-[id number] laxative and course of MiraLax. Afebrile, sirs screen negative. Urinary catheter in place, no active bleeding around the catheter seems intact, no blood within the tubing, scant pink tinge in collection bag noted. Urinalysis not obvious for infection, some blood noted. CBC, CMP pending. CT abdomen and pelvis ordered. CT abdomen and pelvis without contrast. Impressions: ?No obstructing stones or hydronephrosis. Bilateral nonobstructing renal calculi. Mild left perinephric fat stranding, low-grade pyelonephritis can not be excluded. Turner catheter in decompressed urinary bladder. Questionable bladder wall thickening. No discrete bladder wall mass. No calcified bladder stones. Mildly enlarged prostate gland with mild mass effect on floor of the urinary bladder. No bowel obstruction or abnormal bowel thickening. No secondary signs of acute appendicitis. Sigmoid diverticulosis without CT evidence of acute diverticulitis. No free fluid free air.? See radiology report Left pyelonephritis changes on CT imaging noted. Urine had blood but not overly impressive, however urine culture requested from this specimen. History of cephalosporin and cephalexin allergy noted. Oral dose ciprofloxacin given here, prescription for further oral ciprofloxacin course of antibiotics for pyelonephritis sent to his pharmacy. Leave catheter/collection bag intact for now. Regarding his lack of bowel movement for 2 or 3 days, there was no mention of any bowel obstruction, no significant stool burden, however seems to be refractory to course of Colace and also MiraLax. Prescription for lactulose sent also to his pharmacy if desired to induce bowel movement. Declined enema, which does not seem indicated by lack of any fecal stool on CT imaging above. Discharged home with family. Follow up with his urologist Dr. Cooper tomorrow 02/22/2024 as planned. Return precautions discussed. Discharge Plan Departure Patient Disposition: Home Clinical Impression: Gross hematuria, Pyelonephritis of left kidney Activity Restrictions/Additional Instructions: Bleeding around Turner catheter penis today, of unclear cause. History of gross hematuria with previous attempted cystoscopy inhibited by urethral stricture, repeat procedure urologist Dr. Cooper on Wednesday with urethroplasty and successful cystoscopy, no known bladder lesions, Turnre catheter in place, awaiting follow up on Wednesday with Dr. Cooper. No bowel movement since , having tried trjc-jon-ueltbcy laxative, and then MiraLax yesterday per phone call with nursing hotline advice. Tonight with penile shaft pain, and some bleeding around the catheter, without knowledge of any dislodgement or pulling or trauma to the catheter. No active bleeding on examination. No ongoing active bleeding in the catheter tubing seemed obvious. Urinalysis showed some blood but no grossly obvious infection, however urine culture was requested. CT abdomen and pelvis noncontrast imaging done, no perforation of the bladder or complications with the procedure seemed obvious, however there seemed to be some stranding around the left kidney, the radiologist was concerned about possible left kidney infection, no obstructing stone in the left ureter noted. We discussed antibiotics for possible left-sided urine infection, history of cephalosporin antibiotic allergy, 1st dose oral ciprofloxacin given, further course of antibiotics sent to your pharmacy. Leave existing urinary catheter in place for now. Regarding lack of bowel movements, consider another dose of MiraLax. I also did send a prescription for lactulose if he would like to try this, which can induce some loosening of the stools. There was no mention of any significant stool burden or bowel obstruction patterns or acute intestinal problems on the CT scan tonight, we have therefore held off on any enema since there was no mention of any sigmoid or rectal stool ball or fecal impaction. Follow up with your urologist tomorrow Wednesday as scheduled. Return earlier to this/nearest emergency department for any change worsening symptoms or any concerns prior Prescriptions: New ciprofloxacin HCl [Cipro] 500 mg tablet 500 mg PO BID Qty: 20 0RF lactulose 20 gram/30 mL solution 20 g PO BID Qty: 600 0RF No Action simvastatin 40 mg tablet 40 mg PO BEDTIME Qty: 90 3RF magnesium 250 mg tablet 250 mg PO DAILY naproxen sodium [Aleve] 220 mg capsule 440 mg PO DAILY PRN (Reason: pain) omeprazole magnesium [Prilosec OTC] 20 mg tablet,delayed release (DR/EC) 20 mg PO DAILY PRN (Reason: reflux) albuterol sulfate 90 mcg/actuation HFA aerosol inhaler 2 puff inhalation Q6H PRN (Reason: shortness of breath or wheezing) Qty: 8.5 5RF cetirizine [Aller-Vandana] 10 mg tablet 10 mg PO DAILY acetaminophen [Tylenol] 325 mg capsule 650 mg PO QID PRN (Reason: pain) Qty: 60 0RF Referrals: Dalton Cooper DO [Physician] - Hola Feliciano MD [Primary Care Provider] - Stand Alone Forms: Patient Portal/API/Survey
--- NOTE | 2024-02-21 00:56 | DI.CT.S_ITS ---
PROCEDURE: CT ABDOMEN PELVIS WO CON INDICATIONS: lower abd pain, recent cystoscopy TECHNIQUE: Axial sections were acquired from the lung bases to the pubic symphysis. Coronal and sagittal reformats were performed. For radiation dose reduction, the following was used: automated exposure control, adjustment of mA and/or kV according to patient size. COMPARISON: None. FINDINGS: Image quality: Diagnostic. Lower Chest: No significant findings. URINARY: Right Kidney: Punctate nonobstructing stones are seen scattered in right renal parenchyma measures 1-2 mm in size. No hydronephrosis. Right Ureter: No hydroureter. Left Kidney: Nonobstructing left renal calculi are seen measures up to 7 mm in size in midpole left kidney. No hydronephrosis. Mild left perinephric fat stranding is seen. Left Ureter: No hydroureter. Bladder: Nicolas catheter within decompressed urinary bladder lumen. Questionable bladder wall thickening. No calcified bladder stones. ABDOMEN: Liver: No contour-deforming solid mass. Gallbladder: No radiopaque gallstones or wall thickening. Biliary ducts: No biliary dilation. Pancreas: No ductal dilation. Spleen: Size is within normal limits. Adrenal Glands: No adrenal nodules. Stomach and Bowel: There is no bowel obstruction or abnormal bowel wall thickening. Sigmoid diverticulosis without CT evidence of acute diverticulitis. Appendix is not visualized. No focal inflammatory changes are seen in right lower quadrant abdomen. No abscess collection. Peritoneum: No abnormal intraperitoneal fluid. No free air. Ventral Wall: No hernia. Abdominal Nodes: No enlarged retroperitoneal or mesenteric lymph nodes. Vessels: Aorta and inferior vena cava are normal in size. PELVIS: Pelvic Organs: Mildly enlarged prostate gland with mass effect on floor of urinary bladder is seen. Pelvic Nodes: Unremarkable. Miscellaneous: Small bilateral inguinal hernia seen containing only. Bones: No aggressive appearing bony lesions. No acute vertebral body compression fracture or spondylolisthesis. Degenerative disc disease throughout lower thoracic and lumbar spine is seen. IMPRESSION: 1. No obstructing stones or hydronephrosis. Bilateral nonobstructing renal calculi. Mild left perinephric fat stranding, low-grade pyelonephritis cannot be excluded. 2. Nicolas catheter in decompressed urinary bladder. Questionable bladder wall thickening. No discrete bladder wall mass. No calcified bladder stones. Mildly enlarged prostate gland with mild mass effect on floor of urinary bladder. 3. No bowel obstruction or abnormal bowel wall thickening. No secondary CT signs of acute appendicitis. Sigmoid diverticulosis without CT evidence of acute diverticulitis. No free fluid free air. Dictated by: Herb Yusuf M.D. on 02/21/2024 at 1:13 Approved by: Herb Yusuf M.D. on 02/21/2024 at 1:17
--- NOTE | 2024-02-21 01:02 | PC.NURSE ---
Pt ambulatory to imaging with environmental services technician
[2024-02-21 01:14] VITALS: BP 126/81; PULSE 68; RESP 18; O2SAT 97
[2024-02-21 01:25] LABS: Add Manual Diff / Slide Review NO; Basophils Absolute Auto 100 /uL (0-100); Basophils Percent Auto 0.7 % (0-2); Eosinophils Absolute Auto 300 /uL (0-450); Eosinophils Percent Auto 3.8 % (2-4); Hematocrit 47.9 % (41-53); Hemoglobin 16.2 g/dL (13.5-17.5); Lymphocytes Absolute Auto 1900 /uL (1100-4500); Lymphocytes Percent Auto 21.8 % (25-40); Mean Corpuscular HGB Conc 33.8 % (30-36); Mean Corpuscular Hemoglobin 30.1 PG (26-34); Mean Corpuscular Volume 89.1 fL (80-100); Monocytes Absolute Auto 900 /uL (0-900); Monocytes Percent Auto 10.6 % (3-14); Neutrophils Absolute Auto 5500 /uL (1500-7000); Neutrophils Percent Auto 63.1 % (50-75); Platelet Count 251 X10^3/uL (150-400); Red Blood Cell Count 5.37 X10^6/uL (4.5-5.9); Red Cell Distribution Width 13.1 % (11.6-14.8); White Blood Cell Count 8.8 X10^3/uL (4.5-11.0)
[2024-02-21 01:30] VITALS: BP 134/84; PULSE 66; RESP 16; O2SAT 95
[2024-02-21 01:33] LABS: Alanine Aminotransferase 31 IU/L (<50); Albumin 4.5 g/dL (3.5-5.0); Albumin Globulin Ratio 1.4 (1.0-2.8); Alkaline Phosphatase 65 U/L (38-126); Aspartate Aminotransferase 39 IU/L (17-59); BUN Creatinine Ratio 17.7 (6-22); Bilirubin Total 0.9 mg/dL (0.2-1.3); Blood Urea Nitrogen 17 mg/dL (9-20); Calcium 9.6 mg/dL (8.4-10.2); Carbon Dioxide 24 mmol/L (22-32); Chloride 104 mmol/L (98-107); Estimated Glomerular Filt Rate > 60 mL/min (>60); Globulin 3.3 g/dL (1.7-4.1); Glucose 95 mg/dL (80-110); HEMOLYSIS < 15 (0-50); Potassium 3.9 mmol/L (3.4-5.1); Sodium 136 mmol/L (137-145); Total Protein 7.8 g/dL (6.3-8.2)
[2024-02-21] MEDS: CIPROFLOXACIN 250 MG TABLET 500 MG PO (01:43)
== END 2024-02-21 01:49 | disposition home or self-care (01) ==
PROVIDERS: Emergency Provider Emergency Medicine; PCP Internal Medicine
DX: N12 Tubulo-interstitial nephritis, not specified as acute or chronic (principal); R31.0 Gross hematuria; Z98.890 Other specified postprocedural states
CPT/HCPCS: 36415; 74176; 80053; 81001; 85025; 87086; 99283; 99284

== ENCOUNTER → 2024-02-28 13:05 | Outpatient (CLI) | payer MEDICARE, OTHER, SELFPAY ==
[2024-02-28 13:52] LABS: Appearance Urine UA CLEAR; Bilirubin Urine UA NEGATIVE (NEGATIVE); Color Urine UA YELLOW; Glucose Urine UA NEGATIVE (Negative); Ketones Urine UA NEGATIVE (NEGATIVE); Leukocyte Esterase Urine UA TRACE (NEGATIVE); Nitrite Urine UA NEGATIVE (Negative); Occult Blood Urine UA 2+ (Negative); Protein Urine UA NEGATIVE (Negative); Specific Gravity Urine UA 1.025 (1.000-1.035); Urobilinogen Urine UA 0.2 E.U./dL (0.2)
[2024-02-28 13:57] LABS: Urine Volume 10mL (spun)
[2024-02-28 14:00] LABS: Bacteria Urine None Seen; Culture Indicated Urine Specimen Cultured; RBC Urine 1-5/HPF (0-5/HPF); Squamous Epithelial Cell Urine None Seen (0-5/HPF); WBC Urine 1-5/HPF (0-5/HPF)
== END ==
PROVIDERS: PCP Internal Medicine; Referring Provider Urology; Visit Provider Urology
DX: N40.1 Benign prostatic hyperplasia with lower urinary tract symptoms (principal); N13.8 Other obstructive and reflux uropathy; N20.0 Calculus of kidney; N12 Tubulo-interstitial nephritis, not specified as acute or chronic; R31.0 Gross hematuria; N32.0 Bladder-neck obstruction
CPT/HCPCS: 81001; 87086

== ENCOUNTER → 2024-03-09 08:47 | Outpatient (CLI) | payer MEDICARE, OTHER, SELFPAY ==
[2024-03-09 10:00] LABS: Appearance Urine UA CLEAR; Bilirubin Urine UA NEGATIVE (NEGATIVE); Color Urine UA YELLOW; Glucose Urine UA NEGATIVE (Negative); Ketones Urine UA NEGATIVE (NEGATIVE); Leukocyte Esterase Urine UA TRACE (NEGATIVE); Nitrite Urine UA NEGATIVE (Negative); Occult Blood Urine UA 2+ (Negative); Protein Urine UA NEGATIVE (Negative); Urobilinogen Urine UA 0.2 E.U./dL (0.2); pH Urine UA 5.5 (4.5-8.0)
[2024-03-09 10:09] LABS: Bacteria Urine None Seen; Culture Indicated Urine Cult Not Indicated; RBC Urine 1-5/HPF (0-5/HPF); Squamous Epithelial Cell Urine None Seen (0-5/HPF); Urine Volume 10mL (spun); WBC Urine 1-5/HPF (0-5/HPF)
== END ==
PROVIDERS: PCP Internal Medicine; Referring Provider Urology; Visit Provider Urology
DX: N32.0 Bladder-neck obstruction (principal)
CPT/HCPCS: 81001

== ENCOUNTER 2024-05-05 08:10 | Day surgery (SDC) | payer MEDICARE, OTHER, SELFPAY ==
[2024-05-05 08:54] VITALS: BP 135/72; PULSE 69; RESP 16; TEMP 36.1; O2SAT 96
[2024-05-05] MEDS: LACTATED RINGERS 1,000 ML 42 ML IV (09:07)
--- NOTE | 2024-05-05 09:54 | PM.HP.IH.1 ---
History of Present Illness History of Present Illness Date Patient Seen: 05/05/24 Time Patient Seen: 09:54 Chief complaint: Colonoscopy w/poss bx [facility] Medical History Trigger finger, right ring finger Eczematous dermatitis Plantar fasciitis, left History of COVID-19 (09/2021) Anxiety Neck pain Palpitations Lactose intolerance HLD (hyperlipidemia) Polycythemia Recurrent sinusitis Right inguinal hernia History of colonic polyps Obstructive sleep apnea History of kidney stones BPH w urinary obs/LUTS Asthma, mild intermittent Allergic rhinitis GERD without esophagitis Mixed hyperlipidemia Surgical History Hx of right inguinal hernia repair (07/31/22) History of back surgery (02/1991) History of transurethral resection of prostate (11/2020) Hx of umbilical hernia repair Social History marital status: details: , 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, 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 household members: spouse lives independently: Yes occupational status: previously employed Smoking Status: Former smoker alcohol intake: current Meds Home Medications and Allergies Home Medications Medication Instructions Recorded Confirmed Type magnesium 250 mg tablet 250 mg PO DAILY 10/13/21 05/05/24 History naproxen sodium 220 mg capsule 440 mg PO DAILY PRN pain 10/13/21 02/22/24 History (Aleve) omeprazole magnesium 20 mg 20 mg PO DAILY PRN reflux 10/13/21 02/22/24 History tablet,delayed release (Prilosec OTC) acetaminophen 325 mg capsule 650 mg (2 x 325 mg) PO QID PRN 07/31/22 02/22/24 Rx (Tylenol) pain #60 caps cetirizine 10 mg tablet (Aller-Vandana) 10 mg PO DAILY rash 06/16/23 02/22/24 History simvastatin 40 mg tablet 40 mg PO BEDTIME #90 tabs 12/13/23 05/05/24 Rx ciprofloxacin HCl 500 mg tablet 500 mg PO BID #20 tabs 02/21/24 02/22/24 Rx (Cipro) lactulose 20 gram/30 mL oral 20 g (30 mL) PO BID #600 mL 02/21/24 02/22/24 Rx solution phenazopyridine 95 mg tablet (Azo 95 mg PO TID PRN 02/22/24 02/22/24 History Urinary Pain Relief) albuterol sulfate 90 mcg/actuation 2 puff inhalation Q6H PRN 03/27/24 Rx aerosol inhaler shortness of breath or wheezing #8.5 grams Allergies Allergy/AdvReac Type Severity Reaction Status Date / Time cephalexin Allergy Intermediate Hives, Verified 05/05/24 08:53 itching, lip swelling cat dander Allergy Mild Sneezing Verified 05/05/24 08:53 atorvastatin AdvReac Intermediate abnormal Verified 05/05/24 08:53 liver testing, reflux Review of Systems Review of Systems Narrative: History of positive colonoscopy, most recent 3-5 years ago with no polyps. Has no bloody bowel movements, no change in stool color or changing to afford best diet. Does have some bleeding in the bowl this morning after prep. States prepped is good Constitutional Constitutional: Reports as per HPI Exam Vital Signs (past 8 hours): - 05/05/24 08:54 Temperature 97 F L Pulse Rate 69 Respiratory Rate 16 Blood Pressure 135/72 Pulse Oximetry 96 Oxygen Delivery Method Room Air Oxygen Delivery Method Room Air Narrative Exam Narrative: Alert and oriented, no acute distress, abdomen benign Const General: cooperative and healthy appearing [facility] Head: normal to inspection Assessment & Plan Assessment & Plan narrative: History of polyps, due for screening colonoscopy, planning for colonoscopy today. Consent signed patient was given the opportunity ask questions which were answered to his apparent satisfaction Time-Based Coding :: [TOTAL MINUTES] spent with patient and on the chart (including review of chart, obtaining history, exam, reviewing outside data, placing orders, documenting exam and treatment plan, and counseling patient) on [DATE]. PROFEE Water Safety Teacher Document charge(s): Yes
[2024-05-05 10:35] VITALS: BP 87/84; PULSE 64; RESP 14; TEMP 36.6; O2SAT 98
[2024-05-05 10:40] VITALS: BP 119/92; PULSE 66; RESP 13; O2SAT 98
--- NOTE | 2024-05-05 10:42 | PM.OP.COLON ---
Operative Date/Time/Diagnoses Date of procedure: 05/05/24 Time of procedure: 10:42 Pre-op diagnosis: Colon cancer screening Post-op diagnosis: same Procedure & Clinicians Study performed: Colonoscopy Same procedure as scheduled: Yes Indications: History of colon polyps Surgeon: Darian Galvez Procedure Notes SCOAP/Timeout: Performed Procedure in detail: Patient seen in the preop area, H and P updated, positive history of colon polyps Patient reported prep was adequate. ? Patient brought back to procedure room, time-out was performed verifying correct patient procedure.? He was given sedation. ? External rectal exam was performed with no identified fissures, or external hemorrhoids significance.? Some hemorrhoidal skin tags. ? Digital rectal exam performed with no masses or blood. Enlarged prostate, no masses palpated ? Colonoscope placed, colon insufflated, adequacy of prep was adequate but not perfect ?the scope was passed without difficulty to the cecum, verified by identification of the tinea. ? The scope was withdrawn with circumferential view of the colon, areas occluded by bowel prep or cleaned as much as possible.? Small 3 mm sessile polyp was identified at 20 cm from the anal verge, was questionable whether this was polypoid or scalp trauma consideration given to fulguration but no cold biopsy was taken. Photo was taken for the chart The scope was retroflexed in the rectum and no internal hemorrhoids were identified. ?air was withdrawn from the colon, scope was withdrawn, and the patient was brought to the recovery area in stable condition. Scope withdrawal time: 12 min Findings: polyp(s) Specimen(s): none sent Complications: none Impression: Small sessile polyp, given history who recommend follow-up colonoscopy in 3 years Post-procedure Recommendations: Colonoscopy in 3 years Plan for aftercare: PACU Follow up: as needed Disposition: PACU
[2024-05-05 10:45] VITALS: BP 118/60; PULSE 62; RESP 12; O2SAT 98
[2024-05-05 10:50] VITALS: BP 123/69; PULSE 68; RESP 12; TEMP 36.6; O2SAT 96
[2024-05-05 11:00] VITALS: BP 114/67; PULSE 64; RESP 12; O2SAT 96
== END 2024-05-05 11:16 | disposition home or self-care (01) ==
PROVIDERS: PCP Internal Medicine
DX: Z12.11 Encounter for screening for malignant neoplasm of colon (principal); Z86.0100 Personal history of colon polyps, unspecified; K64.4 Residual hemorrhoidal skin tags; N40.0 Benign prostatic hyperplasia without lower urinary tract symptoms
CPT/HCPCS: G0105; J2704

== ENCOUNTER → 2024-11-22 10:45 | Outpatient (CLI) | payer MEDICARE, OTHER, SELFPAY ==
[2024-11-22 11:23] LABS: Hematocrit 47.0 % (41-53); Hemoglobin 15.8 g/dL (13.5-17.5); Mean Corpuscular HGB Conc 33.6 % (30-36); Mean Corpuscular Hemoglobin 30.1 PG (26-34); Mean Corpuscular Volume 89.5 fL (80-100); Platelet Count 234 X10^3/uL (150-400)
[2024-11-22 11:36] LABS: Blood Urea Nitrogen 19 mg/dL (9-20); Calcium 9.8 mg/dL (8.4-10.2); Carbon Dioxide 27 mmol/L (22-32); Chloride 102 mmol/L (98-107); Cholesterol 221 mg/dL (140-199); Estimated Glomerular Filt Rate > 60 mL/min (>60); Glucose 97 mg/dL (70-99); HDL Cholesterol 57 mg/dL (40-60); HEMOLYSIS < 15 (0-50); Potassium 4.8 mmol/L (3.4-5.1); Sodium 138 mmol/L (137-145); Triglycerides 107 mg/dL (35-150)
[2024-11-22 12:03] LABS: Prostate Specific Antigen 1.01 ng/mL (0.10-4.00); TSH w/ Reflex to FT4 2.25 uIU/mL (0.47-4.68)
== END ==
PROVIDERS: PCP Internal Medicine; Referring Provider Internal Medicine; Visit Provider Internal Medicine
DX: N13.8 Other obstructive and reflux uropathy (principal); E78.2 Mixed hyperlipidemia; N40.1 Benign prostatic hyperplasia with lower urinary tract symptoms; M13.80 Other specified arthritis, unspecified site
CPT/HCPCS: 36415; 80048; 80061; 84153; 84443; 84450; 85027; 85651; 86140

== ENCOUNTER → 2024-12-06 09:46 | Outpatient (CLI) | payer MEDICARE, OTHER, SELFPAY ==
--- NOTE | 2024-12-06 09:47 | DI.RAD.S_ITS ---
PROCEDURE: XR SHOULDER RT MIN 2V INDICATIONS: shoulder pain, no trauma TECHNIQUE: Three views of the right shoulder were acquired. COMPARISON: None. FINDINGS: Bones: There are no osseous abnormalities. Acromioclavicular and glenohumeral joints: Mild acromioclavicular and glenohumeral degeneration Soft tissues: No soft tissue swelling, calcification or mass. IMPRESSION: Mild degeneration Dictated by: Christopher Montaño M.D. on 12/07/2024 at 11:38 Approved by: Christopher Montaño M.D. on 12/07/2024 at 11:39
== END ==
PROVIDERS: PCP Internal Medicine; Referring Provider Internal Medicine; Visit Provider Internal Medicine
DX: M19.011 Primary osteoarthritis, right shoulder (principal); M75.81 Other shoulder lesions, right shoulder
CPT/HCPCS: 73030

== ENCOUNTER → 2025-01-09 08:48 | Outpatient (CLI) | payer MEDICARE, OTHER, SELFPAY ==
[2025-01-09 10:27] LABS: Alanine Aminotransferase 26 IU/L (<50); Albumin 4.7 g/dL (3.5-5.0); Albumin Globulin Ratio 1.6 (1.0-2.8); Alkaline Phosphatase 67 U/L (38-126); Blood Urea Nitrogen 20 mg/dL (9-20); Calcium 9.8 mg/dL (8.4-10.2); Carbon Dioxide 28 mmol/L (22-32); Chloride 103 mmol/L (98-107); Cholesterol 225 mg/dL (140-199); Estimated Glomerular Filt Rate > 60 mL/min (>60); Globulin 2.9 g/dL (1.7-4.1); Glucose 94 mg/dL (70-99); HDL Cholesterol 52 mg/dL (40-60); HEMOLYSIS < 15 (0-50); Potassium 4.8 mmol/L (3.4-5.1); Sodium 140 mmol/L (137-145); Total Protein 7.6 g/dL (6.3-8.2); Triglycerides 131 mg/dL (35-150)
== END ==
PROVIDERS: PCP Internal Medicine; Referring Provider Internal Medicine; Visit Provider Internal Medicine
DX: E78.2 Mixed hyperlipidemia (principal)
CPT/HCPCS: 36415; 80053; 80061